=== PATIENT | male | born 1970 | race Asian ===

== ENCOUNTER 2021-03-14 08:15 | Day surgery (SDC) | payer OTHER ==
[~2021-03-14] VITALS: Ht 162.6 cm; Wt 72.7 kg
[~2021-03-14 08:15] MED LIST: BUPIVACAINE HCL/PF 0.25% 30 ML VIAL ONE; LIDOCAINE/PF 1% 30 ML VIAL ONE; RINGERS SOLUTION,LACTATED 1,000 ML IV ONE; SODIUM CHLORIDE 0.9% 1,000 ML IV ONE; SODIUM CHLORIDE 0.9% 1,000 ML ONE
[2021-03-14 08:52] LABS: COVID AG,FIA SOURCE NASOPHARYNGEAL
[2021-03-14] MEDS ORDERED: HYDROmorphone 2 MG/ML VIAL IVP PRN (09:15)
[2021-03-14] MEDS ORDERED: FentaNYL CITRATE PF 100 MCG/2 ML VIAL IVP PRN (09:15)
[2021-03-14] MEDS ORDERED: MEPERIDINE-PF 25 MG/ML VIAL IVP PRN (09:15)
[2021-03-14] MEDS ORDERED: GEMF600T90 PO (11:28)
[2021-03-14] MEDS ORDERED: ONDANSETRON HCL 4 MG/2 ML VIAL IVP ONE (12:00)
[2021-03-14] MEDS ORDERED: FentaNYL CITRATE PF 100 MCG/2 ML VIAL IVP ONE (12:00)
[2021-03-14] MEDS ORDERED: LIDOCAINE/PF 2% 5 ML SYRINGE IVP ONE (12:00)
[2021-03-14] MEDS ORDERED: PROPOFOL 1% 20 ML VIAL IVP ONE (12:00)
[2021-03-14] MEDS ORDERED: OXYGEN THERAPY IH SCH (20:00)
== END 2021-03-14 12:15 | disposition home or self-care (01) ==
LOC: SURGERY 08:15
PROVIDERS: ATTEND Podiatrist Primary Podiatric Medicine
DX: M67.471 Ganglion, right ankle and foot (principal); E78.00 Pure hypercholesterolemia, unspecified; F17.210 Nicotine dependence, cigarettes, uncomplicated; Z98.890 Other specified postprocedural states; Z72.89 Other problems related to lifestyle; Z88.8 Allergy status to other drugs, medicaments and biological substances; Z79.899 Other long term (current) drug therapy
CPT/HCPCS: 28090; 87426; C9803; J0690; J2405; J2704; J3010; J3490 ×3; J7030; J7120; 88302